=== PATIENT | female | born 1950 | race Caucasian/White ===

== ENCOUNTER 2018-04-10 09:49 | Outpatient (CLI) | payer MEDICARE, MEDICAID ==
[~2018-04-10] VITALS: Ht 180.3 cm; Wt 109.0 kg
[2018-04-10] VITALS (13 sets, daily range): BP systolic 113–143; BP diastolic 56–92
[2018-04-10] MEDS ORDERED: CAFFEINE CITRATE 60 MG/3 ML injection vial IV PRN (10:40)
[2018-04-10] MEDS ORDERED: regadenoson 0.4mg/5ml syringe IV ONE ×2 (10:40→11:19)
[2018-04-10] MEDS ORDERED: normal saline 1000ml 1,000 ML IV SCH (10:40)
[2018-04-10] MEDS ORDERED: CAFFEINE CITRATE 60 MG/3 ML injection vial IV ONE (11:19)
== END 2018-04-10 23:59 | disposition home or self-care (01) ==
LOC: RAD 09:49
PROVIDERS: ATTEND Internal Medicine Cardiovascular Disease
DX: J44.9 Chronic obstructive pulmonary disease, unspecified (principal)
CPT/HCPCS: 78452; 93017; A9500; J7030

== ENCOUNTER 2022-03-18 15:12 | Emergency (ER) | payer MEDICARE, MEDICAID ==
[~2022-03-18] VITALS: Ht 180.3 cm; Wt 117.0 kg
[~2022-03-18 15:12] MED LIST: ADV50100 IH; ASPI81TA52 PO; ATOR10TA87 PO; ATR0.5NEB IH; BIOT10006 PO; CALC500T11 PO; CHOL10002 PO; DIPH-681 PO; FENO160T13 PO; FLUO40CA10 PO; FURO-150 PO; HYDR-3972 PO; LEVA15HF4 INH; MELA5TAB12 PO; MONT-40 PO; trintellix PO
[2022-03-18 15:59] VITALS: BP 152/93
[2022-03-18] MEDS ORDERED: TETanus/Pertussis (Acell)/Diphther VAC/PF (Tdap-Adult) 0.5ml syringe IMVAC ONE (16:05)
[2022-03-18] MEDS ORDERED: LIDOcaine 1% W/epiNEPHrine 1:200,000 10ml vial IJ ONE (16:05)
[2022-03-18] MEDS ORDERED: LIDOcaine 1% W/epiNEPHrine 1:100,000 20ml vial IJ ONE (16:15)
[2022-03-18] MEDS: celeCOXIB 100mg capsule PO SCH ×2 (17:34→17:35)
== END 2022-03-18 17:41 | disposition home or self-care (01) ==
LOC: ER 15:13
DX: S81.812A Laceration without foreign body, left lower leg, initial encounter (principal); S80.02XA Contusion of left knee, initial encounter; I87.2 Venous insufficiency (chronic) (peripheral); G89.29 Other chronic pain; J44.9 Chronic obstructive pulmonary disease, unspecified; Z87.891 Personal history of nicotine dependence; Z88.0 Allergy status to penicillin; Z88.1 Allergy status to other antibiotic agents; Z88.2 Allergy status to sulfonamides; Z88.8 Allergy status to other drugs, medicaments and biological substances; Z79.82 Long term (current) use of aspirin; Z79.899 Other long term (current) drug therapy; W19.XXXA Unspecified fall, initial encounter; Y93.01 Activity, walking, marching and hiking; Y92.89 Other specified places as the place of occurrence of the external cause; Y99.8 Other external cause status
CPT/HCPCS: 12004; 90471; 90715; 99284

== ENCOUNTER 2025-09-17 13:22 | Outpatient (CLI) | payer MEDICARE, MEDICAID ==
[~2025-09-17 13:22] MED LIST changes: -LEVA15HF4 INH; +LEVA15HF9 INH
--- NOTE | 2025-09-17 14:07 | RADIOLOGY REPORT ---
Indication: LEFT WRIST PAIN Technique: DI WRIST,LIMITED (AP/LAT), DI FOREARM,INCL.ONE JOINTWRIST LTD Comparison: None FINDINGS/IMPRESSION: No radiographic evidence for acute fracture or dislocation. Fracture of the distal radial metadiaphysis with intra-articular extension. 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 Calcification within the dorsal mid forearm soft tissues measuring 7 mm
== END 2025-09-17 23:59 | disposition home or self-care (01) ==
LOC: RAD 13:22
PROVIDERS: ATTEND Family Medicine
DX: M19.032 Primary osteoarthritis, left wrist (principal); M25.532 Pain in left wrist; M25.832 Other specified joint disorders, left wrist
CPT/HCPCS: 73090; 73100